=== PATIENT | female | born 1985 | race Caucasian/White ===

== ENCOUNTER 2016-05-24 05:03 | Emergency (ER) | payer OTHER ==
[~2016-05-24] VITALS: Ht 170.2 cm; Wt 113.9 kg
[2016-05-24] MEDS ORDERED: diphenhydrAMINE HCL 50 MG/ML VIAL ONE (05:41)
[2016-05-24] MEDS ORDERED: METOCLOPRAMIDE HCL 10 MG/2 ML VIAL ONE ×2 (05:41→05:52)
[2016-05-24] MEDS ORDERED: IV NS 0.9% 1,000 ML ONE (05:42)
[2016-05-24] MEDS ORDERED: IV SET PRIMARY 1 EA INFUS.SET MC ONE (05:42)
[2016-05-24] MEDS ORDERED: IV NS 0.9% 1,000 ML BAG IV ONE (06:00)
[2016-05-24] MEDS ORDERED: diphenhydrAMINE HCL 50 MG/ML VIAL IV ONE (06:00)
[2016-05-24] MEDS ORDERED: METOCLOPRAMIDE HCL 10 MG/2 ML VIAL IV ONE (06:00)
[2016-05-24 07:44] VITALS: BP 139/95
== END 2016-05-24 07:47 | disposition home or self-care (01) ==
LOC: ER 05:07
DX: G43.909 Migraine, unspecified, not intractable, without status migrainosus (principal)
CPT/HCPCS: 96361; 96374; 96375; 99284; A4606; J1200; J2765 ×2; J7030; Z7610

== ENCOUNTER 2017-10-05 14:17 | Emergency (ER) | payer OTHER ==
[~2017-10-05] VITALS: Ht 167.6 cm; Wt 98.9 kg
[2017-10-05] MEDS ORDERED: ACETAMINOPHEN ES 500 MG TABLET PO ONE (15:30)
[2017-10-05] MEDS ORDERED: IBUPROFEN 600 MG TABLET PO ONE ×2 (15:30→15:35)
[2017-10-05] MEDS ORDERED: ACETAMINOPHEN ES 500 MG TABLET ONE (15:35)
[2017-10-05 16:00] VITALS: BP 144/84
--- NOTE | 2017-10-05 16:10 | NUR ---
Patient discharged to home in stable condition. Written and verbal after care instructions given. Patient verbalizes understanding of instruction.
== END 2017-10-05 16:46 | disposition home or self-care (01) ==
LOC: ER 14:19
DX: R51 Headache (principal)
CPT/HCPCS: 70450-TC; A4606; Z7610

== ENCOUNTER 2017-10-06 07:06 | Emergency (ER) | payer OTHER ==
[~2017-10-06] VITALS: Ht 167.6 cm; Wt 98.9 kg
--- NOTE | 2017-10-06 07:10 | NUR ---
CALLED IN WR- NO ANSWER. PT IN RESTROOM PER ADMITTING.
--- NOTE | 2017-10-06 07:11 | NUR ---
A/OX4, PT IS C/O NONTRAUMATIC RT EYE RPESSURE PAIN SINCE YESTERDAY-WOKE UP WITH IT, PT WAS SEEN HERE YESTERDAY FOR SAME REASON. AMBULATORY IN A STEADYGAIT TO ED BED 09. NAD VSS RR EVEN AND UNLABORED. SKIN IS WARM AND NON DIAPHORETIC. PENDING ER MD JORDAN
[2017-10-06 07:55] LABS: BASOPHILS % (AUTO) 0.4 % (0.0-2.0); EOSINOPHILS % (AUTO) 0.8 % (0.0-6.0); HEMATOCRIT 39 % (33-45); HEMOGLOBIN 13.2 g/dL (11.5-14.8); LYMPHOCYTES # (AUTO) 2.3 /CMM (0.8-4.8); LYMPHOCYTES % (AUTO) 27.9 % (20.0-44.0); MEAN CORPUSCULAR HGB CONC 34 g/dl (31.0-36.0); MEAN CORPUSCULAR VOLUME 81 fL (82-100); MONOCYTES # (AUTO) 0.6 /CMM (0.1-1.30); MONOCYTES % (AUTO) 7.3 % (2.0-12.0); NEUTROPHILS # (AUTO) 5.2 /CMM (1.8-8.9); NEUTROPHILS % (AUTO) 63.6 % (43.0-81.0); PLATELET COUNT (AUTO) 272 /CMM (150-450); RDW COEFFICIENT OF VARIATION 14.9 (11.5-15.0); RED BLOOD CELL COUNT(AUTO) 4.79 MIL/uL (4.0-5.2); WHITE BLOOD COUNT (AUTO) 8.2 K/uL (4.3-11.0)
[2017-10-06] MEDS ORDERED: IOHEXOL-350 100 ML VIAL IV ONE (07:58)
[2017-10-06] MEDS ORDERED: IV NS 0.9% 1,000 ML BAG IV ONE (08:00)
[2017-10-06] MEDS ORDERED: METOCLOPRAMIDE HCL 10 MG/2 ML VIAL IV ONE (08:00)
[2017-10-06] MEDS ORDERED: diphenhydrAMINE HCL 50 MG/ML VIAL IV ONE (08:00)
[2017-10-06] MEDS ORDERED: diphenhydrAMINE HCL 50 MG/ML VIAL ONE (08:01)
[2017-10-06] MEDS ORDERED: METOCLOPRAMIDE HCL 10 MG/2 ML VIAL ONE (08:01)
[2017-10-06 08:42] LABS: CALCIUM, SERUM 9.3 mg/dL (8.5-10.1); CREATININE 0.7 mg/dL (0.6-1.3); POTASSIUM 4.4 mmol/L (3.5-5.1)
--- NOTE | 2017-10-06 09:34 | NUR ---
IV removed. Catheter intact and site benign. Pressure and 4x4 applied to site. No bleeding noted.Patient discharged to home in stable condition. Written and verbal after care instructions given. Patient verbalizes understanding of instruction.
[2017-10-06 09:39] VITALS: BP 125/89
== END 2017-10-06 10:05 | disposition home or self-care (01) ==
LOC: ER 07:10
DX: H57.11 Ocular pain, right eye (principal); G43.909 Migraine, unspecified, not intractable, without status migrainosus
CPT/HCPCS: 36415; 70496-TC; 80048-TC; 85025-TC; A4216; A4606; J1200; J2765; J7030; Q9967; Z7610